=== PATIENT | female | born 1955 | race Caucasian/White ===

== ENCOUNTER 2021-05-03 11:53 | Emergency (ER) | payer MEDICARE ==
[~2021-05-03 11:53] MED LIST: CLARITIN10 MG PO; GLUCOTROL5 MG PO; HUMALOG100 UNIT/1 SC; LANTUS **100 UNITS/ SC; LIPITOR20 MG PO; METFORMIN HCL500 MG PO; PAXIL10 MG PO; PLAVIX75 MG PO; PROTONIX 40MG T40 MG PO; SEROQUEL 100MG100 MG PO; SYNTHROID88 MCG PO; TRAZODONE 150M150 MG PO; WELLBUTRIN XL150 MG PO; XANAX0.5 MG PO; ZOFRAN4 MG PO
[2021-05-03 13:12] LABS: BASOPHIL 0.6 % (0-2); EOSINOPHIL 2.7 % (0-7); HCT 38.5 % (37.0-47.0); HGB 12.7 g/dl (12.5-16.0); LYMPHOCYTE 38.1 % (15-48); MCV 93.9 fL (78.0-100.0); MONOCYTE 7.2 % (0-12); MPV 9.5 fL (6.0-9.5); NEUTROPHIL 51.2 % (41-80); NRBC 0; PLT 281 K/uL (150-400); RDW 12.4 % (11.5-14.0); WBC 8.8 K/uL (4.0-10.5)
[2021-05-03 13:52] LABS: BILIRUBIN NEGATIVE (NEGATIVE); BLOOD NEGATIVE Ery/uL (NEGATIVE); CLARITY CLEAR (CLEAR); COLOR YELLOW (YELLOW); GLUCOSE (U) 1+ mg/dL (NORMAL); LEUKOCYTES TRACE Leu/uL (NEGATIVE); NITRITE NEGATIVE (NEGATIVE); PROTEIN NEGATIVE (NEGATIVE); UROBILINOGEN 0.2 mg/dL (0.2-1.0); pH 5.5 (5.0-9.0)
[2021-05-03 14:03] LABS: CREATININE 1.27 mg/dL (0.51-0.95); POTASSIUM 3.9 mmol/L (3.5-5.1)
[2021-05-03 14:04] LABS: ALBUMIN 3.1 g/dL (3.4-5.0); BILIRUBIN - TOTAL 0.2 mg/dL (0.2-1.0); GLOBULIN (CALCULATION) 3.7 g/dL; TOTAL PROTEIN 6.8 g/dL (6.4-8.2)
== END 2021-05-03 14:19 | disposition home or self-care (01) ==
LOC: FER 11:53
PROVIDERS: Emergency Medicine
DX: Z04.3 Encounter for examination and observation following other accident (principal); E11.9 Type 2 diabetes mellitus without complications; Z98.890 Other specified postprocedural states
CPT/HCPCS: 36415; 80053; 81001; 84443; 85025; 99284

== ENCOUNTER 2021-06-03 16:39 | Inpatient (IN) | payer MEDICARE ==
[~2021-06-03] VITALS: Ht 175 cm; Wt 81.0 kg
[2021-06-03 19:42] LABS: BASOPHIL 0.5 % (0-2); EOSINOPHIL 1.1 % (0-7); HCT 39.7 % (37.0-47.0); HGB 12.8 g/dl (12.5-16.0); LYMPHOCYTE 27.8 % (15-48); MCHC 32.2 g/dL (32.0-36.0); MCV 93.2 fL (78.0-100.0); MONOCYTE 7.1 % (0-12); MPV 9.6 fL (6.0-9.5); NEUTROPHIL 63.2 % (41-80); NRBC 0; PLT 373 K/uL (150-400); RBC 4.26 M/uL (4.20-5.40); RDW 12.8 % (11.5-14.0); WBC 12.3 K/uL (4.0-10.5)
[2021-06-03 19:59] LABS: ALBUMIN 3.6 g/dL (3.4-5.0); BILIRUBIN - TOTAL 0.4 mg/dL (0.2-1.0); BUN/CREAT RATIO (CALC) 19.2 RATIO; CREATININE 1.51 mg/dL (0.51-0.95); GLOBULIN (CALCULATION) 4.1 g/dL; POTASSIUM 5.6 mmol/L (3.5-5.1); TOTAL PROTEIN 7.7 g/dL (6.4-8.2)
[2021-06-03] MEDS ORDERED: TRAZODONE HCL150 MG PO (23:42)
[2021-06-03] MEDS ORDERED: PAXIL10 MG PO (23:43)
[2021-06-03] MEDS ORDERED: LEVOTHYROXINE100 MC2 PO (23:45)
[2021-06-03] MEDS ORDERED: BUSPAR5 MG PO (23:46)
[2021-06-03] MEDS ORDERED: PLAVIX75 MG PO (23:46)
[2021-06-03] MEDS ORDERED: LIPITOR 10MG TA10 MG PO (23:47)
[2021-06-03] MEDS ORDERED: LANTUS **100 UNITS/ SC (23:48)
[2021-06-03] MEDS ORDERED: SEROQUEL 25MG T25 MG PO (23:50)
[2021-06-03] MEDS ORDERED: METFORMIN HCL500 MG PO (23:51)
[2021-06-03] MEDS ORDERED: GLUCOTROL5 MG PO (23:52)
[2021-06-03] MEDS ORDERED: REMERON15 MG PO (23:54)
[2021-06-04 06:20] LABS: BASOPHIL 0.7 % (0-2); EOSINOPHIL 2.9 % (0-7); HCT 35.1 % (37.0-47.0); HGB 11.2 g/dl (12.5-16.0); LYMPHOCYTE 42.6 % (15-48); MCH 29.8 pg (25.0-31.0); MCHC 31.9 g/dL (32.0-36.0); MCV 93.4 fL (78.0-100.0); MONOCYTE 8.3 % (0-12); MPV 9.2 fL (6.0-9.5); NEUTROPHIL 45.3 % (41-80); NRBC 0; PLT 288 K/uL (150-400); RBC 3.76 M/uL (4.20-5.40); RDW 12.6 % (11.5-14.0); WBC 8.3 K/uL (4.0-10.5)
[2021-06-04 06:38] LABS: ALBUMIN 2.7 g/dL (3.4-5.0); BILIRUBIN - TOTAL 0.3 mg/dL (0.2-1.0); BUN/CREAT RATIO (CALC) 18.5 RATIO; CREATININE 1.3 mg/dL (0.51-0.95); GLOBULIN (CALCULATION) 3.4 g/dL; POTASSIUM 4.6 mmol/L (3.5-5.1); TOTAL PROTEIN 6.1 g/dL (6.4-8.2)
[2021-06-05 06:45] LABS: BASOPHIL 0.5 % (0-2); EOSINOPHIL 1.9 % (0-7); HCT 37.4 % (37.0-47.0); HGB 11.6 g/dl (12.5-16.0); LYMPHOCYTE 34.4 % (15-48); MCH 29.8 pg (25.0-31.0); MCV 96.1 fL (78.0-100.0); MONOCYTE 5.9 % (0-12); MPV 9.1 fL (6.0-9.5); NRBC 0; PLT 303 K/uL (150-400); RBC 3.89 M/uL (4.20-5.40); RDW 13.1 % (11.5-14.0); WBC 9.7 K/uL (4.0-10.5)
[2021-06-05 07:11] LABS: BUN/CREAT RATIO (CALC) 16.2 RATIO; CREATININE 1.3 mg/dL (0.51-0.95); POTASSIUM 5.2 mmol/L (3.5-5.1)
[2021-06-06 08:50] LABS: BUN/CREAT RATIO (CALC) 13.7 RATIO; CREATININE 1.24 mg/dL (0.51-0.95); POTASSIUM 4.9 mmol/L (3.5-5.1)
[2021-06-07 04:24] LABS: BASOPHIL 0.5 % (0-2); EOSINOPHIL 3.1 % (0-7); HCT 33.7 % (37.0-47.0); HGB 10.6 g/dl (12.5-16.0); LYMPHOCYTE 50.1 % (15-48); MCHC 31.5 g/dL (32.0-36.0); MCV 95.5 fL (78.0-100.0); MONOCYTE 8.3 % (0-12); MPV 9.1 fL (6.0-9.5); NEUTROPHIL 37.8 % (41-80); NRBC 0; PLT 280 K/uL (150-400); RBC 3.53 M/uL (4.20-5.40); RDW 13.3 % (11.5-14.0); WBC 9.2 K/uL (4.0-10.5)
[2021-06-07 04:40] LABS: BUN/CREAT RATIO (CALC) 14.5 RATIO; CREATININE 1.59 mg/dL (0.51-0.95); POTASSIUM 4.2 mmol/L (3.5-5.1)
[2021-06-08 06:19] LABS: BASOPHIL 0.7 % (0-2); EOSINOPHIL 2.9 % (0-7); HCT 35.2 % (37.0-47.0); HGB 10.8 g/dl (12.5-16.0); LYMPHOCYTE 40.9 % (15-48); MCH 29.3 pg (25.0-31.0); MCHC 30.7 g/dL (32.0-36.0); MCV 95.7 fL (78.0-100.0); MONOCYTE 9.1 % (0-12); MPV 9.1 fL (6.0-9.5); NEUTROPHIL 46.3 % (41-80); NRBC 0; PLT 280 K/uL (150-400); RBC 3.68 M/uL (4.20-5.40); RDW 13.3 % (11.5-14.0); WBC 8.8 K/uL (4.0-10.5)
[2021-06-08 06:33] LABS: INR 1.08 (0.9-1.2); PROTHROMBIN TIME 13.4 SECONDS (11.8-13.4)
[2021-06-08 06:45] LABS: BUN/CREAT RATIO (CALC) 16.1 RATIO; CREATININE 1.55 mg/dL (0.51-0.95); POTASSIUM 4.8 mmol/L (3.5-5.1)
[2021-06-13 08:32] LABS: BASOPHIL 0.8 % (0-2); EOSINOPHIL 4.2 % (0-7); HCT 34.2 % (37.0-47.0); HGB 10.9 g/dl (12.5-16.0); LYMPHOCYTE 35.6 % (15-48); MCH 30.3 pg (25.0-31.0); MCHC 31.9 g/dL (32.0-36.0); MPV 9.1 fL (6.0-9.5); NEUTROPHIL 51.2 % (41-80); NRBC 0; PLT 289 K/uL (150-400); RDW 13.4 % (11.5-14.0); WBC 8.7 K/uL (4.0-10.5)
[2021-06-13 08:57] LABS: ALBUMIN 2.5 g/dL (3.4-5.0); BILIRUBIN - TOTAL 0.3 mg/dL (0.2-1.0); BUN/CREAT RATIO (CALC) 18.5 RATIO; C-REACTIVE PROTEIN 3.5 mg/dL (<=0.90); CREATININE 1.19 mg/dL (0.51-0.95); GLOBULIN (CALCULATION) 3.7 g/dL; POTASSIUM 4.3 mmol/L (3.5-5.1); TOTAL PROTEIN 6.2 g/dL (6.4-8.2)
[2021-06-17 06:23] LABS: BASOPHIL 0.8 % (0-2); HCT 34.2 % (37.0-47.0); HGB 10.9 g/dl (12.5-16.0); LYMPHOCYTE 48.6 % (15-48); MCH 29.9 pg (25.0-31.0); MCHC 31.9 g/dL (32.0-36.0); MCV 93.7 fL (78.0-100.0); MONOCYTE 8.3 % (0-12); MPV 9.3 fL (6.0-9.5); NEUTROPHIL 38.2 % (41-80); NRBC 0; PLT 323 K/uL (150-400); RBC 3.65 M/uL (4.20-5.40); RDW 13.2 % (11.5-14.0); WBC 9.5 K/uL (4.0-10.5)
[2021-06-17 06:50] LABS: BUN/CREAT RATIO (CALC) 19.3 RATIO; CREATININE 1.19 mg/dL (0.51-0.95)
[2021-06-17] MEDS ORDERED: VANCOMYCIN1000 M1 IV (10:51)
== END 2021-06-17 17:00 | DRG 240 ==
LOC: FER 16:39 → FTCU 21:53 → FMS 21:53 → FTCU 22:40 → FMS 06-05 20:56
PROVIDERS: Allergy & Immunology Allergy; Emergency Medicine; Internal Medicine; Nurse Practitioner; Podiatrist Foot & Ankle Surgery; ADMIT Internal Medicine
PROC: 0Y6M0ZC Detachment at Right Foot, Partial 3rd Ray, Open Approach (ICD-10-PCS; 2021-06-08)
PROC: 0Y6M0ZB Detachment at Right Foot, Partial 2nd Ray, Open Approach (ICD-10-PCS; principal; 2021-06-08 08:00)
DX: E11.51 Type 2 diabetes mellitus with diabetic peripheral angiopathy without gangrene (principal); M86.9 Osteomyelitis, unspecified; M84.474A Pathological fracture, right foot, initial encounter for fracture; M84.477A Pathological fracture, right toe(s), initial encounter for fracture; E87.0 Hyperosmolality and hypernatremia; N17.9 Acute kidney failure, unspecified; E11.69 Type 2 diabetes mellitus with other specified complication; Z20.822 Contact with and (suspected) exposure to COVID-19; E11.22 Type 2 diabetes mellitus with diabetic chronic kidney disease; I12.9 Hypertensive chronic kidney disease with stage 1 through stage 4 chronic kidney disease, or unspecified chronic kidney disease; N18.9 Chronic kidney disease, unspecified; E11.610 Type 2 diabetes mellitus with diabetic neuropathic arthropathy; B95.2 Enterococcus as the cause of diseases classified elsewhere; E11.621 Type 2 diabetes mellitus with foot ulcer; L97.514 Non-pressure chronic ulcer of other part of right foot with necrosis of bone; I73.9 Peripheral vascular disease, unspecified; E87.8 Other disorders of electrolyte and fluid balance, not elsewhere classified; E11.65 Type 2 diabetes mellitus with hyperglycemia; E87.5 Hyperkalemia; E11.40 Type 2 diabetes mellitus with diabetic neuropathy, unspecified; E03.9 Hypothyroidism, unspecified; M19.90 Unspecified osteoarthritis, unspecified site; F41.9 Anxiety disorder, unspecified; F32.9 Major depressive disorder, single episode, unspecified; F42.3 Hoarding disorder; Z91.19 Patient's noncompliance with other medical treatment and regimen; Z91.81 History of falling; Z88.0 Allergy status to penicillin; Z79.01 Long term (current) use of anticoagulants; Z80.0 Family history of malignant neoplasm of digestive organs; Z79.4 Long term (current) use of insulin; Z80.8 Family history of malignant neoplasm of other organs or systems
CPT/HCPCS: 36415; 73600; 73620; 73721; 80048; 80053; 80202; 82962; 83036; 84145; 85025; 85610; 86140; 87070; 87075; 87077; 87186; 87205; 92523; 93005; 93922; 97110; 97116; 97161; 97166; 97530-GP; C1751; J1642; J1650; J1956; J2250; J2405; J2704; J3010; J3370; J7030; J7050; U0002